=== PATIENT | male | born 1960 | race Caucasian/White ===

== ENCOUNTER 2020-09-07 16:12 | Emergency (ER) | payer OTHER ==
[~2020-09-07] VITALS: Ht 175.3 cm; Wt 111.1 kg
[2020-09-07] MEDS ORDERED: Vibramycin100 MG PO (16:59)
== END 2020-09-07 17:21 | disposition home or self-care (01) ==
LOC: ER 16:12
DX: L03.113 Cellulitis of right upper limb (principal); F17.210 Nicotine dependence, cigarettes, uncomplicated
CPT/HCPCS: 99283